=== PATIENT | male | born 1960 | race Two or more races ===

== ENCOUNTER 2017-07-16 18:32 | Emergency (ER) | payer BC ==
[2017-07-16] MEDS ORDERED: HYDROcodone/ACETAMIN 5-325 MG* 1 TAB PO ONE ×2 (19:40→21:46)
--- NOTE | 2017-07-16 19:58 | RAD ---
INDICATION: Left ankle pain after a fall in a hole COMPARISON: None. TECHNIQUE: 3 views of the left ankle were obtained. FINDINGS: On the AP and oblique views of the ankle there is cortical discontinuity and appearance of bony avulsion along the distal lateral margin of the fibula. There is soft tissue swelling overlying the fibular malleolus. The lateral view the ankle there is a cephalocaudal oriented fracture line at the calcaneal tubercle as well as at least 3 fracture lines at the neck of the calcaneus. IMPRESSION: LIKELY AVULSION FRACTURE INVOLVING THE DISTAL LATERAL FIBULAR MALLEOLUS WELL MINIMALLY DISPLACED COMMINUTED FRACTURE OF THE CALCANEUS.
--- NOTE | 2017-07-16 20:52 | ED ---
Lower Extremity - HPI Summary HPI Summary: 56 male presents to ED BIBA with complaints of left ankle and heel pain that began just [employer]KER after falling 4 feet into a hole while walking down the street. Patient states he landed on his feet, mainly left leg/foot which is where his pain is. Was unable to bear weight on left leg. Admits to swelling. Denies any other injuries or complaints. No knee or hip pain. No right foot or leg pain. Has not taken any medication. Is not on blood thinners. Denies PMHx other than depression. Describes pain to be sharp and shooting worse with movement. Denies numbness/tingling. No LOC, vision changes, nausea, vomiting, or headache. - History of Current Complaint Chief Complaint: EDExtremityLower Stated Complaint: LT ANKLE PAIN Time Seen by Provider: 07/16/17 18:59 Hx Obtained From: Patient Mechanism Of Injury: Fall From Height Of: - 4 feet Onset of Pain: Immediate, Post Accident Severity Initially: Moderate Severity Currently: Moderate Pain Intensity: 6 Pain Scale Used: 0-10 Numeric Timing: Constant Location: Is Discrete @ - left lateral ankle/heel Character Of Pain: Sharp, Aching Associated Signs And Symptoms: Positive: Swelling Aggravating Factor(s): Standing, Ambulation, Movement Alleviating Factor(s): Rest Able to Bear Weight: No - due to pain and injury Feet (Multiple View): 1 - pain and swelling - Allergies/Home Medications Allergies/Adverse Reactions: Allergies Allergy/AdvReac Type Severity Reaction Status Date / Time No Known Allergies Allergy Verified 01/20/13 11:38 PMH/Surg Hx/FS Hx/Imm Hx Endocrine/Hematology History: Denies: Hx Diabetes, Hx Thyroid Disease Cardiovascular History: Denies: Hx Hypertension Respiratory History: Denies: Hx Asthma, Hx Chronic Obstructive Pulmonary Disease (COPD) GI History: Denies: Hx Ulcer Psychiatric History: Reports: Hx Depression - Surgical History Surgery Procedure, Year, and Place: n/a - Immunization History Immunizations Up to Date: Yes Infectious Disease History: No Infectious Disease History: Denies: Hx Hepatitis, Hx Human Immunodeficiency Virus (HIV), Traveled Outside the [place] in Last 30 Days - Family History Known Family History: Positive: None - Social History Alcohol Use: Rare Substance Use Type: Reports: None Smoking Status (MU): Former Smoker Review of Systems Constitutional: Negative Cardiovascular: Negative Respiratory: Negative Positive: Arthralgia, Myalgia, Decreased ROM, Edema - left ankle Skin: Negative Neurological: Negative All Other Systems Reviewed And Are Negative: Yes Physical Exam Triage Information Reviewed: Yes Vital Signs On Initial Exam: Initial Vitals Temp Pulse Resp BP Pulse Ox 98 F 60 16 118/65 95 07/16/17 18:43 07/16/17 18:43 07/16/17 18:43 07/16/17 18:43 07/16/17 18:43 Vital Signs Reviewed: Yes Appearance: Positive: Well-Appearing, Well-Nourished, Pain Distress - moderate Skin: Positive: Warm, Skin Color Reflects Adequate Perfusion, Dry, Other - edema at left lateral ankle/foot. Negative: Cold, Numb, Diaphoretic, Pale, Erythema @ Head/Face: Positive: Normal Head/Face Inspection Eyes: Positive: Conjunctiva Clear ENT: Positive: Hearing grossly normal Neck: Positive: Supple, Nontender Respiratory/Lung Sounds: Positive: Clear to Auscultation, Breath Sounds Present. Negative: Rales, Rhonchi, Wheezes Cardiovascular: Positive: Normal, RRR, Pulses are Symmetrical in both Upper and Lower Extremities - 2+ pedal b/l. Negative: Murmur, Rub Musculoskeletal: Positive: Limited @ - left ankle. rest of MSK exam normal, Abnormal @ - edema at left lateral malleolous, Pain @ - left ankle with movement and palpation and left calcaneus, Edema Left - ankle and foot lateral, Other - no crepitus or step off. no pain or tenderness on palpation of left lower extremity tibia/knee or hip. Negative: Caroline Sign Left, Caroline Sign Right Neurological: Positive: Normal, Sensory/Motor Intact - intact, Alert, Oriented to Person Place, Time, CN Intact II-III, Reflexes Intact, NV Bundle Intact Distally, Unable to Assess Gait - due to injury and pain - Rohith Coma Scale Coma Scale Total: 15 Procedures - Splinting Location: left ankle Hand-Made Type: plaster Splint: posterior walking - and sugar tong Pre-Proc Neuro Vasc Exam: normal Post-Proc Neuro Vasc Exam: normal, unchanged from pre-exam Diagnostics - Vital Signs Vital Signs Temp Pulse Resp BP Pulse Ox 07/16/17 18:43 98 F 60 16 118/65 95 - Laboratory Lab Statement: Any lab studies that have been ordered have been reviewed, and results considered in the medical decision making process. - Radiology left ankle Xray Interpretation: Positive (See Comments) - LIKELY AVULSION FRACTURE INVOLVING THE DISTAL LATERAL FIBULAR MALLEOLUS WELL MINIMALLY DISPLACED COMMINUTED FRACTURE OF THE CALCANEUS. Radiology Interpretation Completed By: Radiologist Re-Evaluation - Re-Evaluation First Eval Re-Evaluation Time: 20:30 Change: Improved - had relief after pain medication. updated on xray results Lower Extremity Course/Dx - Course Course Of Treatment: given pain management. xray obtained and showed fracture of fibula and calcaneal communited fracture. no concern for compartment sydrome and is neurovascularly intact. normal PE findings other than pain at left ankle with edema. splinted in posterior/sugar tong splint without complication. patient tolerated procedure well. RICE and pain management at home. non weight bearing with crutches. Follow up with Ortho. Aware of worsening signs and symptoms. No concern for other etiology or injuries at this time. Patient agrees and understands plan. - Diagnoses Differential Diagnosis/HQI/PQRI: Positive: Contusion, Dislocation, Fracture ( Closed), Sprain, Strain Provider Diagnoses: Left fibular fracture, Left calcaneal fracture Discharge - Discharge Plan Condition: Stable Disposition: HOME Prescriptions: HYDROcodone/ACETAMIN 5-325 MG* [Cavour 5-325 TAB*] 1 tab PO Q6H PRN #15 tab MDD 2 PRN Reason: Pain Ibuprofen TAB* [Motrin TAB* 600 MG] 600 mg PO Q6H PRN #15 tab PRN Reason: Pain Patient Education Materials: Ankle Fracture (ED), Calcaneal Fracture (ED) Forms: *Work Release Referrals: Tom Montemayor MD [Medical Doctor] - Geni Quijano MD [Primary Care Provider] - Additional Instructions: Take prescribed medication as directed. Rest, ice, elevate. Do not get splint wet. Do not bear weight, use crutches. Any new or worsening symptoms (splint too tight, increased pain, numbness) please seek medical attention promptly. Please call and make an appointment with ortho to be seen next early week. Follow up with PCP.
[2017-07-16] MEDS ORDERED: Ketorolac INJ* 30 MG/ML 1 ML VIAL IM ONE (21:16)
[2017-07-16] MEDS ORDERED: Ketorolac INJ* 60 MG/2 ML VIAL IM ONE (21:17)
[2017-07-16 22:14] VITALS: BP 123/74
== END 2017-07-16 22:12 | disposition home or self-care (01) ==
LOC: ED 18:32
DX: S82.402A Unspecified fracture of shaft of left fibula, initial encounter for closed fracture (principal); S92.002A Unspecified fracture of left calcaneus, initial encounter for closed fracture; W17.2XXA Fall into hole, initial encounter; Y92.9 Unspecified place or not applicable; F32.9 Major depressive disorder, single episode, unspecified; Z87.891 Personal history of nicotine dependence
CPT/HCPCS: 29515; 96372; 99282; J1885

== ENCOUNTER 2017-07-21 07:49 | Day surgery (SDC) | payer BC ==
[~2017-07-21 07:49] MED LIST: Buffered Lidocaine 0.9% SYRIN* 5 ML/SYR SYRINGE INTRADERM ONE; DiMENhydriNATE IV* 50 MG/ML VIAL IV PUSH PRN; Famotidine IV* 10 MG/ML 2 ML (20 mg) IV ONE; Morphine INJ* 2 MG/ML 1 ML CARPUJECT IV PRN; Ondansetron INJ* 2 MG/ML VIAL IV PRN; PROCHLORPERAZINE INJ 5 MG/ML 2 ML VIAL IV PRN; Scopolamine 1.5 mg* PATCH TRANSDERM PRN; fentaNYL* 50 MCG/ML 2 ML VIAL (100 MCG VIAL) IV PRN; oxyCODONE/Acetamin 5/325 MG* TAB PO PRN
[2017-07-21] MEDS ORDERED: Buffered Lidocaine 0.9% SYRIN* 5 ML/SYR SYRINGE ONE (08:18)
[2017-07-21] MEDS ORDERED: Famotidine IV* 10 MG/ML 2 ML (20 mg) ONE (08:18)
[2017-07-21] MEDS ORDERED: ceFAZolin 2 GM PREMIX (*) 2 GM/50 ML BAG IVPB ONE (08:18)
[2017-07-21] MEDS ORDERED: fentaNYL* 50 MCG/ML 2 ML VIAL (100 MCG VIAL) ONE (08:48)
[2017-07-21] MEDS ORDERED: KETAMINE HCL* 50 MG/ML 10 ML VIAL ONE (08:48)
[2017-07-21] MEDS ORDERED: Midazolam* 1 MG/ML 10 ML VIAL (10 MG) ONE (08:48)
[2017-07-21] MEDS ORDERED: Bupivacaine 0.5% SDV PF* 30 ML VIAL ONE (11:07)
[2017-07-21] MEDS ORDERED: Morphine INJ* 10 MG/ML 1 ML CARPUJECT ONE (11:31)
[2017-07-21] MEDS ORDERED: Dexamethasone IV* 4 MG/ML 1 ML (4 MG) ONE (11:47)
[2017-07-21] MEDS ORDERED: Ondansetron INJ* 2 MG/ML VIAL ONE (11:47)
[2017-07-21] MEDS ORDERED: Ketorolac INJ* 30 MG/ML 1 ML VIAL ONE (11:47)
[2017-07-21] MEDS ORDERED: Propofol* 10 MG/ML 20 ML BTL IV PUSH ONE (11:47)
[2017-07-21] MEDS ORDERED: Lidocaine 2% PF * 5 ML VIAL ONE (11:48)
[2017-07-21] MEDS ORDERED: Bupivacaine 0.25% SDV* 30 ML ONE (11:48)
[2017-07-21] MEDS ORDERED: Phenylephrine INJ* 10 MG/ML 1 ML VIAL (10 MG) ONE (11:48)
[2017-07-21] MEDS ORDERED: oxyCODONE/Acetamin 5/325 MG* TAB ONE (13:45)
[2017-07-21 14:36] VITALS: BP 149/75
--- NOTE | 2017-07-22 01:12 | OP ---
DATE OF OPERATION: 07/21/17 [facility] DATE OF : 64 SURGEON: Bienvenido Kim MD GYM MANAGER: ROCKY Jacques ANESTHESIOLOGIST: Dick Bowen MD ANESTHESIA: General endotracheal anesthesia with regional nerve block. PRE-OP DIAGNOSES: 1. Left intraarticular displaced calcaneus fracture. 2. Left distal fibula lateral malleolus fracture. 3. Left peroneal tendon dislocation. POST-OP DIAGNOSES: 1. Left intraarticular displaced calcaneus fracture. 2. Left distal fibula lateral malleolus fracture. 3. Left peroneal tendon dislocation. OPERATIVE PROCEDURE: 1. Open reduction internal fixation of left intraarticular calcaneus fracture. 2. Open reduction internal fixation of left distal fibula lateral malleolus fracture. 3. Stabilization of dislocating peroneal tendon. INDICATIONS: Mr. Fair sustained the above-mentioned injuries over the previous weekend. X-rays and CT scan confirmed a displaced intraarticular calcaneus fracture, a distal fibula lateral malleolus fracture, and dislocated peroneal tendons. Both nonoperative and operative treatment alternatives were reviewed. Further, the nature and risks of surgery were reviewed in careful detail in the office as well as in the preoperative holding area. Our discussions regarding the risks of surgery included but were not limited to infection, wound problems, nerve injury, neuroma, RSD, persistent symptoms, posttraumatic arthritis, failure of the surgery, and even the remote chance of catastrophic complication including loss of limb. IMPLANTS: Synthes small fragment screws, Synthes 4.0-mm cannulated screws, Synthes 4.5-mm cannulated screws, and Synthes mini frag screws. TOURNIQUET TIME: Less than 2 hours at 250 mmHg with a calf tourniquet. SPECIMENS: None. ESTIMATED BLOOD LOSS: Minimal. COMPLICATIONS: None. STATUS: Stable from the operating room to the recovery room and then home. DESCRIPTION OF PROCEDURE: The patient was seen in the preoperative holding unit and informed written consent was obtained. The swelling was checked preoperatively and was greatly improved and there was good wrinkling of the skin , this was deemed acceptable for the surgery. The appropriate extremity was marked. The patient was then brought to the operating room table and carefully positioned on the operating room table in the lateral decubitus position. Anesthesia was then induced. All bony prominences were padded with great care. A chlorhexidine based pre-scrub was performed followed by a standard prep and draped with ChloraPrep. A surgical safety pause was then conducted in which we confirmed the appropriate patient, extremity, planned procedure, availability of equipment, indication, and administration of prophylactic antibiotics, and DVT prophylaxis in the form of a compression boot on the nonsurgical extremity. We began by placing a well-padded calf tourniquet 3 fingerbreadths beneath the fibular neck. We then performed an Esmarch exsanguination of the limb and inflated the tourniquet to 250 mmHg. We began with fluoroscopic assessment of the calcaneus to set up the incision to the sinus tarsi and a standard sinus tarsi incision was made. We dissected down to the posterior facet of the calcaneus. The fracture fragments were mobilized with a Mohan and copious irrigation was used to remove fracture hematoma. A Schanz pin was placed into the tuberosity, which coupled with direct manipulation of the tuberosity using the Mohan allowed us to correct the shortened tuberosity as well as improve the varus deformity. We then turned our attention to the posterior facet and reduced the fragments under direct visualization and held them temporarily with K-wires. This was assessed again both directly as well as fluoroscopically. Two small fragment screws were then placed across the posterior facet into the sustentaculum roland. This held good reduction. We then passed multiple guidewires from the tuberosity up into the posterior facet fragments as well as into the anterior process fragment to hold the overall reduction. Fluoroscopy was used to help both with placement of these guide pins as well as to confirm improved overall alignment of the calcaneus. At this point, two 4.0-mm cannulated screws were placed in a kickstand fashion to support the posterior facet and then two 4.5-mm cannulated screws were placed longitudinally from the tuberosity in to the anterior process of the calcaneus to maintain the length. Then, at this time, a transverse 4.0-mm cannulated screw was placed between the 2 fragments of the anterior calcaneus. We had great visualization of the posterior facet of the subtalar joint and there was no hardware protrusion into this. Fluoroscopy confirmed what was seen visually. At this time, we turned our attention to the distal fibula and peroneals. The sinus tarsi incision was then extended about 5 cm proximally along the course of the fibula. I carefully dissected down to the periosteal layer. At this point, it was seen that the superior peroneal retinaculum had delaminated off the fibula and the peroneal tendons were subluxated over the side of the fibula. The SPR was incised along the fibula with a 15 blade to expose the tendons. The tendons were explored and no tears were appreciated. The distal fibular fracture which was already known about on the x-ray and CT scan was then visualized. It was more robust than had been expected and did contain a large portion of the osteo-cartilaginous retrofibular groove. Because of this, it was decided that we would reduce and fix this fragment as it did have a significant portion of the retrofibular groove. This was provisionally reduced and held in place while a minifragment screw was placed into the rest of the fibula to hold it in place. This had excellent purchase and held the fragment reduced. At this time, the peroneal tendons were manually reduced and the superior peroneal retinaculum was repaired down to the posterior fibula using intraosseous tunnels and #1 vicryl suture. This corrected the delamination that was seen as noted above. At this point, there was excellent gliding of the peroneal tendons with plenty of room as a Milan elevator was able to be slid up the peroneal sheath. There was no instability noted after the SPR was reattached to the fibula. At this time, the whole wound was copiously irrigated and then the wound was closed in layers utilizing 3-0 Monocryl and 3- 0 nylon. The wounds at the heel which were used to put in the screws were also irrigated and closed with 3-0 Monocryl and 3-0 nylon. Xeroform and a dry sterile dressing was placed with a sterile Webril. A splint was applied with the ankle in neutral position. The patient was awakened from anesthesia and transferred to the recovery room in stable condition. There were no complications. All needle and sponge counts were correct at the end of the case. ATTESTATION: I attest that I was present, scrubbed, and performed the entire procedure myself. POSTOPERATIVE PLAN: Mr. Fair will be kept nonweightbearing for an anticipated duration of 6 weeks. He will follow up in 2 weeks for likely suture removal, Steri- Strip application, and transition into a nonweightbearing short-leg cast. [id number]/[facility] #: [id number] MARCO ANTONIO
--- NOTE | 2017-07-22 10:13 | RAD ---
INDICATION: Left foot ORIF COMPARISON: CT July 19, 2017 FINDINGS: 67.7 seconds of fluoroscopy were provided for the orthopedics department. Fluoroscopic spot imaging of the left calcaneus were obtained for operative control and show ORIF of the severely comminuted calcaneal fracture . CPT II Codes: 6045F (fluoro time doc)
[2017-07-24] MEDS ORDERED: Scopolamine PATCH Remove* 1 NOTE MISC PATCH OFF ONE (05:58)
== END 2017-07-21 14:53 | disposition home or self-care (01) ==
LOC: OR 07:49
PROVIDERS: ATTEND Orthopaedic Surgery
DX: S92.062A Displaced intraarticular fracture of left calcaneus, initial encounter for closed fracture (principal); S82.62XA Displaced fracture of lateral malleolus of left fibula, initial encounter for closed fracture; S86.392A Other injury of muscle(s) and tendon(s) of peroneal muscle group at lower leg level, left leg, initial encounter; G89.18 Other acute postprocedural pain; W13.4XXA Fall from, out of or through window, initial encounter; Y92.9 Unspecified place or not applicable; F32.9 Major depressive disorder, single episode, unspecified; F41.9 Anxiety disorder, unspecified; Z87.891 Personal history of nicotine dependence
CPT/HCPCS: 76000; A9270-GY; C1713; C1776; J0690; J1100; J1885; J2250; J2270; J2405; J2704; J3010